=== PATIENT | male | born 1960 | race Caucasian/White ===

== ENCOUNTER 2016-09-02 08:00 | Day surgery (SDC) | payer BC ==
[~2016-09-02 08:00] MED LIST: INDERAL LA80 M1 PO
== END 2016-09-02 15:12 ==
LOC: SRG 08:00 → SHSB 08:04 → ORE 09:50 → PACU 11:00 → SHSB 11:55
PROC: 0JB40ZZ Excision of Right Neck Subcutaneous Tissue and Fascia, Open Approach (ICD-10-PCS; principal; 2016-09-02)
DX: D17.0 Benign lipomatous neoplasm of skin and subcutaneous tissue of head, face and neck (principal); M19.90 Unspecified osteoarthritis, unspecified site; I10 Essential (primary) hypertension; Z79.899 Other long term (current) drug therapy; Z87.891 Personal history of nicotine dependence; Z90.89 Acquired absence of other organs; Z98.52 Vasectomy status; Z98.890 Other specified postprocedural states
CPT/HCPCS: J3010